=== PATIENT | male | born 1955 | race Caucasian/White ===

== ENCOUNTER → 2019-05-01 | Outpatient (CLI) | payer OTHER ==
[2019-05-01 15:47] LABS: African American GFR (CKD) >90 (>60 ml/min/1.73 sqM); Blood Urea Nitrogen 23 mg/dL (9-20); Non-African American GFR(CKD) >90 (>60 ml/min/1.73 sqM)
--- NOTE | 2019-05-02 07:31 | CT ---
EXAMINATION TYPE: CT abdomen pelvis wo/w con DATE OF EXAM: 05/01/2019 COMPARISON: None. HISTORY: Macro Hematuria R flank pain CT DLP: 1031 mGycm, Automated Exposure Control for Dose Reduction was Utilized. CONTRAST: CT scan of the abdomen and pelvis is performed with oral and without and with IV Contrast, patient in jected with 100 mL of Isovue 300. FINDINGS: LUNG BASES: Mild bibasilar dependent atelectasis. LIVER/GB: Cholecystectomy clips are seen. PANCREAS: No significant abnormality is seen. SPLEEN: No significant abnormality is seen. ADRENALS: No significant abnormality is seen. KIDNEYS: Noncontrast images show roughly 3-4 scattered right renal calculi all measuring under 3 mm. No significant left-sided nephrolithiasis. Symmetric cortical medullary uptake and excretion from bot h kidneys with subcentimeter lesion laterally upper to midpole level right kidney measures 28 series 7 to small to characterize presumed benign. No hydronephrosis or obstructing ureteral calculi identif ied bilaterally. Slightly more tortuous course to the visualized proximal to mid right ureter noted. Scattered pelvic phleboliths. Urinary bladder shows no intraluminal mass or calculus. No suspicious w all thickening. BOWEL: Oral contrast reaches level of the hepatic flexure. No suspicious small or large bowel dilatat ion is seen. Normal-appearing appendix seen from base of cecum upper right pelvis represents coronal image 60 series 12. PROSTATE/SEMINAL VESICLES: Heterogeneous normal sized prostate with few central calcifications. LYMPH NODES: No greater than 1cm abdominal or pelvic lymph nodes are appreciated. OSSEOUS STRUCTURES: Bilateral pars defect L5 level with grade 1 anterolisthesis L5 on S1 measuring 6 mm sagittal image 87. Moderate disc space narrowing L5-S1 level with vacuum disc phenomenon. Mild-to- moderate multilevel spurring in the thoracolumbar spine. OTHER: No significant additional abnormality is seen. IMPRESSION: Tiny nonobstructing right renal calculi. No hydronephrosis or obstructing calculi identif ied bilaterally. Acute Source of right flank pain not identified.
== END | disposition home or self-care (01) ==
LOC: RADCTMAIN 14:43
PROVIDERS: ATTEND Urology
DX: N20.0 Calculus of kidney (principal); R31.0 Gross hematuria
CPT/HCPCS: 82565; 84520; 74178; 36415; Q9967

== ENCOUNTER → 2019-11-15 | Outpatient (CLI) | payer OTHER ==
[2019-11-15 15:16] LABS: Basophils % (A) 0 %; Eosinophils # (A) 0.1 k/uL (0-0.7); Eosinophils % (A) 1 %; HCT 45.2 % (39.0-53.0); Lymphocytes # (A) 1.1 k/uL (1.0-4.8); Lymphocytes % (A) 17 %; MCH 30.9 pg (25.0-35.0); MCHC 33.1 g/dL (31.0-37.0); MCV 93.3 fL (80.0-100.0); Mean Platelet Volume 6.5; Monocytes # (A) 0.5 k/uL (0-1.0); Monocytes % (A) 7 %; Neutrophils # (A) 4.7 k/uL (1.3-7.7); Neutrophils % (A) 73 %; Platelet Count 195 k/uL (150-450); RBC 4.84 m/uL (4.30-5.90); RDW 12.5 % (11.5-15.5); WBC 6.4 k/uL (3.8-10.6)
[2019-11-15 15:22] LABS: African American GFR (CKD) >90 (>60 ml/min/1.73 sqM); Anion Gap 7 mmol/L; Blood Urea Nitrogen 17 mg/dL (9-20); Calcium 9.4 mg/dL (8.4-10.2); Carbon Dioxide 29 mmol/L (22-30); Chloride 103 mmol/L (98-107); Glucose 102 mg/dL (74-99); Non-African American GFR(CKD) >90 (>60 ml/min/1.73 sqM); Potassium 4.3 mmol/L (3.5-5.1); Sodium 139 mmol/L (137-145)
== END | disposition home or self-care (01) ==
LOC: LABPAT 14:08
PROVIDERS: ATTEND Urology
DX: Z01.818 Encounter for other preprocedural examination (principal); N20.0 Calculus of kidney
CPT/HCPCS: 36415; 80048; 85025

== ENCOUNTER 2019-11-21 08:14 | Day surgery (SDC) | payer OTHER ==
[2019-11-18 15:50] VITALS: BMI 23.4
--- NOTE | 2019-11-19 17:25 | P.GSHP ---
History of Present Illness H&P Date: 11/19/19 Chief Complaint: Right flank pain the patient is a 64-year-old white male who reports right-sided flank pain. A computed tomography scan in April 2019 showed a 2 mm right upper pole renal calculus, and 3 additional punctate renal calculi. I had a lengthy discussion with the patient, as I'm skeptical that the small calculi of the cause of his flank pain. After reviewing the pros and cons of ureteroscopic removal of the calculi, he has elected to undergo ureteroscopy with laser lithotripsy and/or stone basketing. - Constitutional Constitutional: Denies chills, Denies fever - Gastrointestinal Gastrointestinal: Denies nausea, Denies vomiting - Genitourinary (Male) Genitourinary: Reports flank pain, Reports hematuria, Reports kidney stones Past Medical History Past Medical History: Hypertension, Prostate Disorder, Thyroid Disorder Additional Past Medical History / Comment(s): KIDNEY STONES History of Any Multi-Drug Resistant Organisms: None Reported Past Surgical History: Prostate Surgery Additional Past Surgical History / Comment(s): TURP. COLONOSCOPY Past Anesthesia/Blood Transfusion Reactions: No Reported Reaction Smoking Status: Former smoker - Past Family History Mother Family Medical History: No Reported History Medications and Allergies Home Medications Medication Instructions Recorded Confirmed Type Aspirin EC [Ecotrin Low Dose] 81 mg PO DAILY 11/18/19 11/18/19 History Levothyroxine Sodium [Synthroid] 50 mcg PO DAILY 11/18/19 11/18/19 History Metoprolol Tartrate [Lopressor] 25 mg PO DAILY 11/18/19 11/18/19 History Terazosin [Hytrin] 5 mg PO HS 11/18/19 11/18/19 History Allergies Allergy/AdvReac Type Severity Reaction Status Date / Time No Known Allergies Allergy Verified 11/18/19 15:45 Surgical - Exam - General well developed, well nourished, no distress - Neck no masses, trachea midline - Respiratory normal respiratory effort, clear to auscultation - Cardiovascular Rhythm: regular Abnormal Heart Sounds: no systolic murmur, no diastolic murmur, no rub, no S3 Gallop, no S4 Gallop, no click, no other - Abdomen Abdomen: soft, non tender, no guarding, no rigid, no rebound - Genitourinary normal penis with no external lesions, testicles non-tender - Rectum Rectum: normal sphincter tone, no masses, other (prostate mildly enlarged but smooth) - Psychiatric oriented to time, oriented to person, oriented to place, speech is normal, memory intact Results - Imaging CT scan - abdomen: report reviewed, image reviewed Assessment and Plan (1) Calculus of kidney Status: Acute Code(s): N20.0 - CALCULUS OF KIDNEY SNOMED Code(s): 96219024 Plan: cystoscopy, right ureteroscopy with Holmium laser lithotripsy and/or stone basketing, right ureteral stent insertion. The procedure has been reviewed in detail with the patient. He is aware of potential risks, which include anesthesia, bleeding, infection, and ureteral injury. He is also aware that his pain may persist following removal of the calculi.
[~2019-11-21 08:14] MED LIST: DEXAMETHASONE SOD PHOSPHATE 10 MG/ML 1 ML VIAL IV ONE; HYDROmorphone 0.5 MG/0.5 ML SYRINGE IVP PRN; LACTATED RINGERS 1,000 ML IV SCH; ONDANSETRON 4 MG/2 ML VIAL IVP ONE
--- NOTE | 2019-11-21 08:31 | XR ---
EXAMINATION TYPE: XR KUB DATE OF EXAM: 11/21/2019 HISTORY: Pain Comparison: None.Single KUB is submitted for interpretation. Findings: Right renal calculi: None Visualized. Right ureteral calculi: None Visualized. Left renal calculi: None Visualized. Left ureteral calculi: None Visualized. Pelvic calcifications: Multiple pelvic calcifications may reflect pelvic phlebolith formation. Bowel gas pattern is unremarkable. No free air. No mass effects. IMPRESSION: 1. Pelvic phleboliths noted.
[2019-11-21] MEDS ORDERED: LIDOCAINE 1% (10MG/ML) FOR IV START INTRADERMA ONE (08:56)
[2019-11-21] MEDS ORDERED: MIDAZOLAM 2 MG/2 ML VIAL ONE (10:24)
[2019-11-21] MEDS ORDERED: LIDOCAINE 1% INJ 10MG/ML (20 ML MDV) ONE (10:24)
[2019-11-21] MEDS ORDERED: PROPOFOL 10 MG/ML 20 ML VIAL IV ONE (10:24)
[2019-11-21] MEDS ORDERED: fentaNYL (PF) 50 MCG/ML 2 ML AMP ONE (10:24)
[2019-11-21] MEDS ORDERED: SUCCINYLCHOLINE CHLORIDE 100 MG/5 ML SYR IV ONE (10:24)
[2019-11-21 11:34] VITALS: TEMP 96.8
--- NOTE | 2019-11-21 11:34 | P.OP ---
Date of Procedure: 11/21/19 Preoperative Diagnosis: Right renal calculi Postoperative Diagnosis: Same Procedure(s) Performed: Cystoscopy, right ureteroscopy with Holmium laser lithotripsy and stone basketing, right ureteral stent insertion Anesthesia: MARY Surgeon: Braulio Chiu Estimated Blood Loss (ml): 20 IV fluids (ml): 700 Pathology: other (Calculus fragment, sent for chemical analysis) Condition: stable Disposition: PACU Indications for Procedure: The patient is a 64-year-old white male who reports right-sided flank pain. A computed tomography scan in April 2019 showed a 2 mm right upper pole renal calculus, and 3 additional punctate renal calculi. He has elected to undergo ureteroscopy with laser lithotripsy and/or stone basketing. Operative Findings: Small caliber ureter. 3-4 mm right upper pole renal calculus, fragmented completely. Description of Procedure: The patient was taken to the operating room and placed in the dorsolithotomy position, with legs supported in Adolfo stirrups. The external genitalia was prepped and draped sterilely. The 30 lens was used to introduce the 21-Swiss Freed cystoscopic sheath through the urethra and into the bladder under direct vision. The prostatic urethra showed evidence of mild lateral lobe enlargement. The bladder was examined in its entirety. Both ureteral orifices were normal anatomic location and configuration, and clear urine effluxed from both. No tumors or foreign bodies were seen. A 0.038 inch Glidewire was passed through the cystoscope. The ureteral orifice was cannulated, and the Glidewire was advanced up to the renal pelvis. The cystoscope was removed, and an 11/13- Swiss ureteral access catheter was passed over the wire, up to the proximal ureter. The Boa flexible ureteroscope was then passed through the ureteral access catheter sheath. Upon entering the ureter, a linear mucosal tear was noted. Narrowing of the ureteropelvic junction was noted. The Glidewire was passed through the ureteroscope, and the ureteroscope was then passed over the wire into the right renal pelvis. The mid pole calyces were examined and appeared normal. A 3-4 mm calculus was seen within an upper pole calyx. The 200 micron Holmium laser probe was passed through the ureteroscope, and lithotripsy was performed. The calculus was very dense, likely composed of calcium oxalate monohydrate. A 1.9-Swiss nitinol basket was used to remove the largest fragment, which turned out to only be approximately 1 mm in diameter. An attempt was made to pass the ureteroscope back into the kidney, to examine the lower pole calyces for punctate calculi. However, the ureteroscope could not be advanced through the ureteropelvic junction, and it was decided to terminate the procedure and place a stent. The Glidewire was passed through the ureteroscope, which was removed along with the ureteral access catheter sheath. The Glidewire was then backloaded into the cystoscope, which was passed into the bladder. A 26 cm, 6-Swiss double-J ureteral stent was placed over the wire. Proper stent positioning was verified fluoroscopically and endoscopically. The bladder was emptied and the cystoscope removed. The patient tolerated the procedure well and was taken to the recovery room in stable condition. DOMINGO JOY Report: Procedure Acuity: Elective Stone Size and Location: 3-4 mm, right upper pole calyx Ureteral Dilation: No Ureteral Access Sheath Used: Yes Stone Sent for Analysis: Yes All Stones/Fragments Were Removed with a Basket: No Complications: No Preoperative Antibiotics Given: Yes Stent Placed: Yes If Stent Placed, Was String Left Attached: No If Stent Placed, When is it to be Removed: 3 weeks Discharge Medications: Tamsulosin
[2019-11-21 12:14] VITALS: RESP 16
[2019-11-21] MEDS ORDERED: LACTATED RINGERS 1,000 ML IV ONE (12:16)
[2019-11-21 12:39] VITALS: BP 179/89; PULSE 58
--- NOTE | 2019-11-22 07:13 | FL ---
EXAMINATION TYPE: FL urography retrograde DATE OF EXAM: 11/21/2019 CLINICAL HISTORY: Right-sided kidney stones. TECHNIQUE: Fluoroscopy. COMPARISON: Same day abdominal x-ray. FINDINGS: Fluoroscopic guidance was provided during ureter stent insertion procedure performed by Dr Maribeth Chiu. A total of 27 seconds of fluoroscopic time was utilized during the procedure and single sp ot intraoperative image is acquired. Single image acquired shows proximal portion of double-J ureter stent overlying right kidney. Adjacent cholecystectomy clips incidentally noted. IMPRESSION: As Above.
== END 2019-11-21 13:10 | disposition home or self-care (01) ==
LOC: OR 08:14
PROVIDERS: ATTEND Urology
DX: N20.0 Calculus of kidney (principal); I10 Essential (primary) hypertension; N42.9 Disorder of prostate, unspecified; E07.9 Disorder of thyroid, unspecified; Z98.890 Other specified postprocedural states; Z87.442 Personal history of urinary calculi; Z87.891 Personal history of nicotine dependence; Z79.82 Long term (current) use of aspirin; Z79.890 Hormone replacement therapy; Z79.899 Other long term (current) drug therapy
CPT/HCPCS: 82365; 74420; 74018; 52356; C2625; C1769; J2250; J1100; J2405; J0690; J2001; J3010; J0330; J2704

== ENCOUNTER → 2020-01-17 | Outpatient (CLI) | payer OTHER ==
--- NOTE | 2020-01-17 07:46 | US ---
EXAMINATION TYPE: US kidneys/renal and bladder DATE OF EXAM: 01/17/2020 COMPARISON: NONE CLINICAL HISTORY: N20.0 CALCULUS OF KIDNEY. EXAM MEASUREMENTS: Right Kidney: 11.6 x 6.5 x 4.7 cm Left Kidney: 12.3 x 5.6 x 5.5 cm Right Kidney: No hydronephrosis or masses seen Left Kidney: No hydronephrosis or masses seen Bladder: linear echogenic area at posterior left bladder artifact vs other etiology such as mass. IMPRESSION: 1. Normal bilateral kidneys. 2. There is some echogenic signal within the posterior urinary bladder. Additional workup is recommen ded.
--- NOTE | 2020-01-17 10:06 | XR ---
EXAMINATION TYPE: XR KUB DATE OF EXAM: 01/17/2020 COMPARISON: 11/21/2019 INDICATION: Calculus of kidney, right-sided kidney stones TECHNIQUE: Single view abdomen supine view FINDINGS: There is a normal bowel gas pattern. Scattered fecal debris is in the ascending and descending colon regions. Suspicious discrete calcifications are not identified. There may be a summation density with the right 12th rib fecal debris and bowel markings. Discrete suspicious renal stone is not identified. Stable appearing phleboliths are within the pelvis . No organomegaly is present. IMPRESSION: 1. Suspicious renal stone not identified.
== END | disposition home or self-care (01) ==
LOC: RADUSWWP 07:01
PROVIDERS: ATTEND Urology
DX: R93.41 Abnormal radiologic findings on diagnostic imaging of renal pelvis, ureter, or bladder (principal)
CPT/HCPCS: 74018; 76770